=== PATIENT | female | born 2005 | race African-American/Black ===

== ENCOUNTER 2025-02-03 21:31 | Emergency (ER) | payer OTHER, SELFPAY ==
[2025-02-03 21:43] VITALS: BP 129/80; PULSE 88; RESP 16; TEMP 37.1; O2SAT 100
--- NOTE | 2025-02-03 21:45 | ED_ITS ---
HPI - General Adult General Chief complaint: Abdominal Pain Stated complaint: R side abdominal pain, nausea Time Seen by Provider: 02/03/25 21:49 History of Present Illness HPI narrative: Patient is a 19-year-old woman with history of anxiety on multiple psychiatric medications who presents with generalized abdominal pain. The pain occurred after supper tonight and has completely resolved. She did develop some mild nausea but that has resolved as well. Patient currently has no symptoms. She has had no reflux symptoms no peritonitis. No dysuria no change in her bowel or bladder no vomiting with her nausea. She has had no chills no night sweats no similar symptoms previously. Patient has not had any surgical intervention on her abdomen in the past. She is not sexually active and states that she is not . Related Data Allergies Allergy/AdvReac Type Severity Reaction Status Date / Time No Known Allergies Allergy Verified 02/03/25 21:50 Review of Systems Status of ROS: Reports: 10 or more systems reviewed and unremarkable except as noted in History and below Exam Narrative: Exam Narrative: EXAM GENERAL: Patient appears comfortable and well. EYES: No scleral icterus. LYMPH: No supraclavicular or cervical lymphadenopathy. SKIN: Visible skin seen during exam normal or with benign process only. EXT: No dependent lower extremity pedal edema. HEART: Regular rate and rhythm with no murmurs, rubs, or gallops. LUNGS: Clear to auscultation bilaterally with no crackles or wheezes. ABD: Soft, non tender, non distended. PSYCH: Good eye contact, speech is not pressured. Const: Vital Signs, click to edit/add: Vital Signs - 24 hr 02/03/25 21:43 Temperature 98.7 F Pulse Rate [Pulse Oximeter] 88 Respiratory Rate 16 Blood Pressure [Ri ght Upper Arm] 129/80 Pulse Oximetry 100 Oxygen Delivery Me thod Room Air Course Course ED Course: Patient seen and examined. Vital Signs Vital signs: Initial Vital Signs Temperature 98.7 F 02/03/25 21:43 Temperature Source Oral 02/03/25 21:43 Pulse Rate 88 02/03/25 21:43 Respiratory Rate 16 02/03/25 21:43 Blood Pressure 129/80 02/03/25 21:43 Blood Pressure Mean 96 02/03/25 21:43 Pulse Oximetry 100 02/03/25 21:43 Oxygen Delivery Method Room Air 02/03/25 21:43 Vital Signs Temperature 98.7 F 02/03/25 21:43 Pulse Rate 88 02/03/25 21:43 Respiratory Rate 16 02/03/25 21:43 Blood Pressure 129/80 02/03/25 21:43 Pulse Oximetry 100 02/03/25 21:43 Oxygen Delivery Method Room Air 02/03/25 21:43 Temperature 98.7 F 02/03/25 21:43 Pulse Rate 88 02/03/25 21:43 Respiratory Rate 16 02/03/25 21:43 Blood Pressure 129/80 02/03/25 21:43 Pulse Oximetry 100 02/03/25 21:43 Oxygen Delivery Method Room Air 02/03/25 21:43 Medical Decision Making MDM Narrative Medical decision making narrative: Patient is a 19-year-old woman who presents approximate hour after having some mild abdominal pain and nausea. Symptoms have completely resolved. She has no further symptoms at this point. I did examine her closely multiple times and had a nice lengthy discussion with her. As she is completely asymptomatic and has normal vital signs and normal lab I do not believe further intervention is indicated. We did watch her for time after my evaluation to make sure she remained asymptomatic which she did. This time I did offer reassurance and recommended close outpatient follow-up and return to the ER if symptoms worsen. Discharge Plan Discharge Clinical Impression: Abdominal pain Patient Disposition: Home, Self-Care Condition: Stable Instructions: Abdominal Pain (ED) Activity Level: No Restrictions Discharge Diet: Regular Stand Alone Forms: [employer] Info Instructions
== END 2025-02-03 22:13 | disposition home or self-care (01) ==
LOC: ED 22:01
PROVIDERS: Emergency Provider Internal Medicine
DX: R10.84 Generalized abdominal pain (principal)
CPT/HCPCS: 99283